=== PATIENT | male | born 1985 | race Caucasian/White ===

== ENCOUNTER 2018-05-01 21:27 | Emergency (ER) | payer OTHER, BC ==
[~2018-05-01] VITALS: Ht 167.6 cm; Wt 85.5 kg
[2018-05-01 21:32] VITALS: TEMP 36.9; Ht 167.6 cm; Wt 85.5 kg
[2018-05-01 22:38] VITALS: BP 136/87; PULSE 81; O2SAT 100
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
--- NOTE | 2018-05-01 23:31 | DIAGNOSTIC IMAGING REPORT ---
L SHOULDER MIN 2 VIEWS ROUTINE CLINICAL HISTORY: Numbness. Left shoulder pain. COMPARISON: None FINDINGS: Alignment of the left shoulder is anatomic. No fracture or suspicious lesion is present. There is minimal osteophytosis of the left acromioclavicular joint. IMPRESSION: 1. No acute fracture or dislocation within the left shoulder. 2. Minimal osteophytosis of the left acromioclavicular joint with preserved joint space. Electronically signed by: Kerwin Lazcano M.D. 05/01/2018 11:29 PM Dictated Date/Time: 05/01/2018 11:28 PM
== END 2018-05-01 22:39 | disposition home or self-care (01) ==
LOC: C.EDB 21:29
DX: R20.0 Anesthesia of skin (principal); M54.2 Cervicalgia; Z87.891 Personal history of nicotine dependence